=== PATIENT | female | born 1980 | race Caucasian/White ===

== ENCOUNTER 2016-07-11 18:47 | Emergency (ER) | payer SELFPAY ==
[2016-07-11 18:47] VITALS: BMI 27.1
[2016-07-11 18:56] VITALS: TEMP 98.1
--- NOTE | 2016-07-11 18:57 | EDPRACDOC ---
- General Information Stated Complaint: left HAND WOUND Time Seen by Provider: 07/11/16 18:50 Information Source: Patient Home Medications: Home Medications Diazepam [Valium] 5 mg PO TID #15 tablet 11/18/15 Hydrocodone/Acetaminophen [Lortab 5-325 mg Tablet] 1 each PO Q6-8H #10 tablet Hydrocodone Bit/Acetaminophen [Lortab 5/325] 1 tab PO Q4-6H PRN #15 tab Allergies/Adverse Reactions: Allergies Allergy/AdvReac Type Severity Reaction Status Date / Time ketorolac tromethamine Allergy Severe Nausea/Vomi Verified 07/11/16 19:18 [From Toradol] ting tramadol Allergy Severe Nausea/Vomi Verified 07/11/16 19:18 ting - History of Present Illness Onset: 0930 am HPI: Pt states she was helping sister move a dryer and is fell onto L hand causing abrasion and pain at 0930 am. Pt states she had to wait for to come home before coming to ED. R hand dominate. Tetanus UTD. Location: Reports: Left, Hand Dominant Hand: Right Mechanism: Reports: Blunt Trauma, Spontaneous Circumstances: Reports: Other (moving a dryer) Tetanus Up To Date?: No Associated Signs & Symptoms: Reports: Abrasion, Hand Pain, Wrist Pain ED Past Medical History - History Reviewed Yes Nurses notes reviewed and agree except as marked - Patient Medical History Additional Past Medical History: DJD - Social Medical History Smoking Status: Never smoker ETOH: None Substance Abuse: None EDM Review of Systems - Review of Systems Constitutional: No Symptoms Reported. negative: Fever, Chills, Weakness, Fatigue, Loss of Appetite Neurological: No Symptoms Reported. negative: Headache, Dizziness, Seizure, Numbness, Weakness, Speech Difficulty, Gait Difficulty Musculoskeletal: Hand, Wrist Integumentary: Bruising, Wound Allergic/Immunologic: No Symptoms Reported. negative: Hives, Itching Hematologic: No Symptoms Reported. negative: Lymphadenopathy, Easy Bruising, Easy Bleeding Psychiatric: No Symptoms Reported. negative: Anxiety, Depression, Hallucinations, Insomnia, Suicidal - Physical Exam Constitutional: No apparent distress, Alert Oriented to: Time, Person, Place Last recorded Vital Signs: Last Vital Signs Temp 98.1 F 07/11/16 18:55 Pulse 81 07/11/16 18:55 Resp 20 07/11/16 18:55 BP 111/51 L 07/11/16 18:55 Pulse Ox 96 07/11/16 18:55 Oxygen Pulse Oxygen Saturation 96 O2 Device Room Air Oxygen Flow Rate Fraction of Inspired Oxygen ( FIO2) - HEENT Head: Normal ( normocephalic) - Respiratory/Cardiovascular Respiratory: Normal - CTA (BBS clear to auscultation without adventitious sounds ) Cardiovascular: Normal (RRR without murmur, gallop or rub) - Musculoskeletal Extremities: Normal (Normal tone, Pulses 2+ No cyanosis or edema, FROM) - Integumentary Skin: Normal, Warm, Dry Lymphatics: Normal (no adenopathy) - Neurologic Memory Impaired: Normal Motor Function: Normal (Normal tone, Pulses 2+ No cyanosis or edema, FROM) Mood Description: Normal Perception: Normal ED Hand Problem Physical Exam - Musculoskeletal Hand: Swelling (L diffuse hand), Moderate Tenderness Wrist: Swelling (L ulna side) Digit: Normal Digit Strength: Normal Nail: Normal Nailbed: Normal Soft Tissue: Normal Distal Function/Circulation: Normal - Integumentary Skin: Abrasion, Ecchymosis Laceration Size (cm): 1cm to old to close and superficial Laceration Type: Linear Laceration Through To: Skin Lymphatics: Normal - Other Exam Hands Image: 1 - 1 cm linear lac to old to close and superficial 2 - abrasion 3 - abrasion 4 - ecchymosis - Differential Diagnosis Abrasion, Contusion, Fracture, Sprain - Diagnostic Imaging Hand Image interpreted by: Radiologist IMPRESSION: No fracture or radiopaque foreign body. Wrist Image interpreted by: Radiologist IMPRESSION: No evidence of fracture or dislocation. Decision Time to Discharge: 19:38 - Departure Disposition: Home Condition: Good Final Diagnosis: Contusion of left hand Qualifiers: Encounter type: initial encounter Qualified Code(s): S60.222A - Contusion of left hand, initial encounter Abrasion hand Qualifiers: Encounter type: initial encounter Laterality: left Qualified Code(s): S60.512A - Abrasion of left hand, initial encounter Instructions: RICE: Routine Care for Injuries, Hand Sprain (ED), Abrasion (ED) Education/Counseling Given To: Patient Education/Counseling Given Regarding: Diagnosis, Treatment, Follow Up Referrals: None,No Provider [Primary Care Provider] - One Week Brain Floyd MD [Staff Physician] - One Week Lynn Singleton MD [Staff Physician] - One Week Prescriptions: Hydrocodone Bit/Acetaminophen [Lortab 5/325] 1 tab PO Q4-6H PRN #15 tab PRN Reason: Pain Additional Instructions: Return for worse or different symptoms.
--- NOTE | 2016-07-11 19:31 | DIRPT ---
CLINICAL DATA: Right hand pain and dorsal soft tissue swelling after getting the hand crushed between a dryer and truck wall. EXAM: LEFT HAND - COMPLETE 3+ VIEW COMPARISON: 04/27/2014. FINDINGS: Mild dorsal soft tissue swelling at the level of the MCP joints with a small laceration at the level of the fifth MCP joint. No fracture, dislocation or radiopaque foreign body. IMPRESSION: No fracture or radiopaque foreign body. Electronically Signed By: Stefan Lomax M.D. On: 07/11/2016 19:28
--- NOTE | 2016-07-11 19:37 | DIRPT ---
CLINICAL DATA: Dryer slipped off truck and landed on patient's left wrist. Left wrist pain and hand swelling. EXAM: LEFT WRIST - COMPLETE 3+ VIEW COMPARISON: None. FINDINGS: There is no evidence of fracture or dislocation. The carpal rows are intact, and demonstrate normal alignment. The joint spaces are preserved. No significant soft tissue abnormalities are seen. IMPRESSION: No evidence of fracture or dislocation. Electronically Signed By: Willis Delgado M.D. On: 07/11/2016 19:34
[2016-07-11 20:16] VITALS: BP 93/54; PULSE 72
== END 2016-07-11 20:10 | disposition home or self-care (01) ==
LOC: EDMC 18:47
DX: S60.222A Contusion of left hand, initial encounter (principal); S60.512A Abrasion of left hand, initial encounter; W22.8XXA Striking against or struck by other objects, initial encounter; Y93.89 Activity, other specified
CPT/HCPCS: 99282